=== PATIENT | female | born 1950 | race Caucasian/White ===

== ENCOUNTER → 2018-03-06 | Outpatient (CLI) | payer MEDICARE, OTHER ==
[~2018-03-06] MED LIST: AMLO10TA6 PO; ASPI-1197 PO; ATOR40TA69 PO; CALC667C10 PO; CEVI30CA7 PO; CHOL500050 PO; COMB5OS OU; CYCL30DR OU; DIPH-704 PO; ISOS20TA7 PO; NITR0.4T50 SL; OMEP20TA25 PO; PARO-37 PO; PROGESTERONE PO; TRAM50TA2 PO
== END | disposition home or self-care (01) ==
LOC: RAH 14:11
PROVIDERS: ATTEND Nurse Practitioner Adult Health
DX: M79.605 Pain in left leg (principal); M79.604 Pain in right leg; R22.43 Localized swelling, mass and lump, lower limb, bilateral
CPT/HCPCS: 93970